=== PATIENT | female | born 1985 | race Caucasian/White ===

== ENCOUNTER 2018-09-22 16:30 | Emergency (ER) | payer SELFPAY ==
[~2018-09-22] VITALS: Ht 170.2 cm; Wt 83.9 kg
[2018-09-22] MEDS ORDERED: hydrOXYzine HCL 25 MG TABLET PO STA (17:13)
[2018-09-22] MEDS ORDERED: hydrOXYzine HCL 25 MG TABLET ONE (17:16)
[2018-09-22 17:42] LABS: BARBITURATES NEG (NEG); BENZODIAZEPINES NEG (NEG); BILIRUBIN,URINE NEG (NEG); CANNABINOIDS NEG (NEG); CLARITY,URINE CLOUDY; COCAINE NEG (NEG); COLOR,URINE YELLOW; GLUCOSE,URINE NEG (NEG); METHADONE NEG (NEG); NITRITE,URINE POS (NEG); OPIATES NEG (NEG); PHENCYCLIDINE NEG (NEG); UROBILINOGEN,URINE 0.2 mg/dL (0.2 mg/dL)
[2018-09-22 17:43] LABS: BACTERIA,URINE MOD /HPF (0-FEW); RBC,URINE OCC /HPF (0-2); SQUAMOUS EPITHELIAL CELL,UR OCC /LPF; U PREG PATIENT NEGATIVE (NEG); WBC,URINE 0 /HPF (0-4)
[2018-09-22 17:45] LABS: AMPHETAMINE/METHAMPHETAMINE NEG (NEG)
[2018-09-22] MEDS ORDERED: NITR100C62 PO (17:52)
[2018-09-22] MEDS ORDERED: HYDR25TA PO (17:52)
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
[2018-09-22] MEDS ORDERED: NITROFURANTOIN MONOHYD/M-CRYST 100 MG CAPSULE. PO ONE (18:00)
[2018-09-22 18:12] VITALS: BP 121/78
== END 2018-09-22 18:14 | disposition home or self-care (01) ==
LOC: ER 16:30
DX: F41.9 Anxiety disorder, unspecified (principal); N39.0 Urinary tract infection, site not specified; R31.9 Hematuria, unspecified; F17.200 Nicotine dependence, unspecified, uncomplicated; Z88.2 Allergy status to sulfonamides
CPT/HCPCS: 36415; 80307; 81001; 81025; 87086; 87186; 99284

== ENCOUNTER 2018-12-05 02:43 | Emergency (ER) | payer SELFPAY ==
[~2018-12-05] VITALS: Ht 170.2 cm; Wt 81.6 kg
[~2018-12-05 02:43] MED LIST: HYDR25TA PO; NITR100C62 PO
--- NOTE | 2018-12-05 02:47 | ED.ADGEN ---
Past History Past Medical History: Anxiety Past Surgical History: No Surgical History Alcohol Use: None Drug Use: None Adult General Chief Complaint Chief Complaint ". .. I ve been nauseated for a week... and I did a home test... and it was positive... and I am having some lower abd. pain... " [facility] HPI Patient is a 33 year old female who presents with above hx and complaints lower abdomen pain and a positive home test. Patient has had 4 pregnancies, vaginal deliveries and one induced by oral medications. Patient has had lower abdomen pain for the past week. No history of STDs. 4 lifetime sexual partners. Last period was at the end of October. No history of bad food. No history of travel. No history of specific ill contacts. No history of trauma. Patient had a stool 2 days ago. Recently moved from [place] to [facility]. Patient does have a history of allergy to sulfa and previous UTIs. Patient also has a history of anxiety disorder which the patient last seen here on September 22 of this year. Review of Systems Review of Systems Constitutional: Denies fever or chills [] Eyes: Denies change in visual acuity, redness, or eye pain [] HENT: Denies nasal congestion or sore throat [] Respiratory: Denies cough or shortness of breath [] Cardiovascular: No additional information not addressed in HPI [] GI: Complaints of lower abdominal pain, nausea. Denies, vomiting, bloody stools or diarrhea [] : Denies dysuria or hematuria [] Musculoskeletal: Denies back pain or joint pain [] Integument: Denies rash or skin lesions [] Neurologic: Denies headache, focal weakness or sensory changes [] Endocrine: Denies polyuria or polydipsia [] All other systems were reviewed and found to be within normal limits, except as documented in this note. Family History Family History Noncontributory Current Medications Current Medications Current Medications Medications (Trade) Dose Ordered Sig/Pipe Start Time Stop Time Status Last Admin Dose Admin Famotidine (Pepcid Vial) 20 mg 1X ONCE 12/05/18 04:00 12/05/18 04:01 DC 12/05/18 04:00 20 MG Lactated Ringer's 1,000 ml @ 1,000 mls/hr Q1H 12/05/18 04:00 12/05/18 04:59 DC 12/05/18 03:47 1,000 MLS/HR Ondansetron HCl (Zofran) 8 mg 1X ONCE 12/05/18 04:00 12/05/18 04:01 DC 12/05/18 04:30 8 MG Oxycodone/ Acetaminophen (Percocet 5/325) 2 tab 1X ONCE 12/05/18 04:00 12/05/18 04:01 DC 12/05/18 04:30 2 TAB See nursing for home meds Allergies Allergies Allergies Coded Allergies Type Severity Reaction Last Updated Verified Sulfa (Sulfonamide Antibiotics) Allergy Intermediate HIVES 09/22/18 Yes Physical Exam Physical Exam Constitutional: Well developed, well nourished, [id number] acute distress, non-toxic appearance. [] HENT: Normocephalic, atraumatic, bilateral external ears normal, oropharynx moist, no oral exudates, nose normal. Poor dentition Eyes: PERRLA, EOMI, conjunctiva normal, no discharge. [] Neck: Normal range of motion, no tenderness, supple, no stridor. [] Cardiovascular:Heart rate regular rhythm, no murmur [] Lungs & Thorax: Bilateral breath sounds equal at apexes on auscultation [] Abdomen: Bowel sounds normal, soft, lower pelvic tenderness, no masses, no pulsatile masses. [] Vaginal shows closed os. No obvious discharge. No cervical motion tenderness. Rectal hard stool in vault. No obvious palpable adnexal masses. Skin: Warm, dry, no erythema, no rash. [] Back: No tenderness, no CVA tenderness. [] Extremities: No tenderness, no cyanosis, no clubbing, ROM intact, no edema. No psoas sign. Neurologic: Alert and oriented X 3, normal motor function, normal sensory func tion, no focal deficits noted. [] Psychologic: Affect anxious, judgement normal, mood normal. [] Current Patient Data Vital Signs Vital Signs Date Time Temp Pulse Resp B/P (MAP) Pulse Ox O2 Delivery O2 Flow Rate FiO2 12/05/18 06:15 70 18 120/77 (91) 99 Room Air 12/05/18 02:55 98.6 Lab Results Laboratory Tests Test 12/05/18 02:56 12/05/18 03:30 12/05/18 04:00 Urine Collection Type Unknown Urine Color Yellow Urine Clarity Clear Urine pH 7.0 Urine Specific [place] 1.015 Urine Protein Neg (NEG-TRACE) Urine Glucose (UA) Neg mg/dL (NEG) Urine Ketones (Stick) Neg mg/dL (NEG) Urine Blood Trace (NEG) Urine Nitrite Neg (NEG) Urine Bilirubin Neg (NEG) Urine Urobilinogen Dipstick 0.2 mg/dL (0.2 mg/dL) Urine Leukocyte Esterase Trace (NEG) Urine RBC 3-5 /HPF (0-2) Urine WBC Occ /HPF (0-4) Urine Squamous Epithelial Cells Few /LPF Urine Bacteria 0 /HPF (0-FEW) Urine Test Positive (NEG) Urine Opiates Screen Neg (NEG) Urine Methadone Screen Neg (NEG) Urine Barbiturates Neg (NEG) Urine Phencyclidine Screen Neg (NEG) Urine Amphetamine/Methamphetamine Neg (NEG) Urine Benzodiazepines Screen Neg (NEG) Urine Cocaine Screen Neg (NEG) Urine Cannabinoids Screen Neg (NEG) Urine Ethyl Alcohol Neg (NEG) White Blood Count 8.4 x10^3/uL (4.0-11.0) Red Blood Count 4.44 x10^6/uL (3.50-5.40) Hemoglobin 12.9 g/dL (12.0-15.5) Hematocrit 39.5 % (36.0-47.0) Mean Corpuscular Volume 89 fL (79-100) Mean Corpuscular Hemoglobin 29 pg (25-35) Mean Corpuscular Hemoglobin Concent 33 g/dL (31-37) Red Cell Distribution Width 15.3 % (11.5-14.5) H Platelet Count 225 x10^3/uL (140-400) Neutrophils (%) (Auto) 49 % (31-73) Lymphocytes (%) (Auto) 40 % (24-48) Monocytes (%) (Auto) 8 % (0-9) Eosinophils (%) (Auto) 3 % (0-3) Basophils (%) (Auto) 1 % (0-3) Neutrophils # (Auto) 4.1 x10^3uL (1.8-7.7) Lymphocytes # (Auto) 3.3 x10^3/uL (1.0-4.8) Monocytes # (Auto) 0.6 x10^3/uL (0.0-1.1) Eosinophils # (Auto) 0.3 x10^3/uL (0.0-0.7) Basophils # (Auto) 0.1 x10^3/uL (0.0-0.2) Prothrombin Time 10.5 SEC (9.4-11.4) Prothrombin Time INR 1.0 (0.9-1.1) Activated Partial Thromboplast Time 23 SEC (23-33) Maternal Serum HCG Beta Subunit 71432 mIU/mL (0-6) H Sodium Level 140 mmol/L (136-145) Potassium Level 3.4 mmol/L (3.5-5.1) L Chloride Level 104 mmol/L (98-107) Carbon Dioxide Level 29 mmol/L (21-32) Anion Gap 7 (6-14) Blood Urea Nitrogen 11 mg/dL (7-20) Creatinine 0.9 mg/dL (0.6-1.0) Estimated GFR (Cockcroft-Gault) 71.7 Glucose Level 89 mg/dL (70-99) Calcium Level 8.8 mg/dL (8.5-10.1) Total Bilirubin 0.1 mg/dL (0.2-1.0) L Direct Bilirubin 0.1 mg/dL (0.0-0.2) Aspartate Amino Transferase (AST) 10 U/L (15-37) L Alanine Aminotransferase (ALT) 19 U/L (14-59) Alkaline Phosphatase 53 U/L (46-116) Total Protein 6.9 g/dL (6.4-8.2) Albumin 3.3 g/dL (3.4-5.0) L Amylase Level 65 U/L (25-115) Lipase 216 U/L (73-393) Thyroid Stimulating Hormone (TSH) 3.404 uIU/mL (0.358-3.740) Treponema pallidum Antibody Nonreactive (Nonreactive) Hepatitis A IgM Antibody Nonreactive (Nonreactive) Hepatitis B Surface Antigen Nonreactive (Nonreactive) Hepatitis B Core IgM Antibody Nonreactive (Nonreactive) Hepatitis C IgG Antibody Nonreactive (Nonreactive) HIV (1&2) Antibody Screen Nonreactive (Nonreactive) Chlamydia DNA Probe Negative (Negative) Neisseria gonorrhoeae DNA Probe Negative (Negative) Microbiology 12/05/18 Wet Prep - Final, Complete 12/05/18 Urine Culture - Final, Complete 12/05/18 Urine Culture Result 1 (CATY) - Final, Complete Laboratory Tests Test 12/05/18 02:56 12/05/18 03:30 Urine Collection Type Unknown Urine Color Yellow Urine Clarity Clear Urine pH 7.0 Urine Specific [place] 1.015 Urine Protein Neg (NEG-TRACE) Urine Glucose (UA) Neg mg/dL (NEG) Urine Ketones (Stick) Neg mg/dL (NEG) Urine Blood Trace (NEG) Urine Nitrite Neg (NEG) Urine Bilirubin Neg (NEG) Urine Urobilinogen Dipstick 0.2 mg/dL (0.2 mg/dL) Urine Leukocyte Esterase Trace (NEG) Urine RBC 3-5 /HPF (0-2) Urine WBC Occ /HPF (0-4) Urine Squamous Epithelial Cells Few /LPF Urine Bacteria 0 /HPF (0-FEW) Urine Test Positive (NEG) Urine Opiates Screen Neg (NEG) Urine Methadone Screen Neg (NEG) Urine Barbiturates Neg (NEG) Urine Phencyclidine Screen Neg (NEG) Urine Amphetamine/Methamphetamine Neg (NEG) Urine Benzodiazepines Screen Neg (NEG) Urine Cocaine Screen Neg (NEG) Urine Cannabinoids Screen Neg (NEG) Urine Ethyl Alcohol Neg (NEG) White Blood Count 8.4 x10^3/uL (4.0-11.0) Red Blood Count 4.44 x10^6/uL (3.50-5.40) Hemoglobin 12.9 g/dL (12.0-15.5) Hematocrit 39.5 % (36.0-47.0) Mean Corpuscular Volume 89 fL (79-100) Mean Corpuscular Hemoglobin 29 pg (25-35) Mean Corpuscular Hemoglobin Concent 33 g/dL (31-37) Red Cell Distribution Width 15.3 % (11.5-14.5) H Platelet Count 225 x10^3/uL (140-400) Neutrophils (%) (Auto) 49 % (31-73) Lymphocytes (%) (Auto) 40 % (24-48) Monocytes (%) (Auto) 8 % (0-9) Eosinophils (%) (Auto) 3 % (0-3) Basophils (%) (Auto) 1 % (0-3) Neutrophils # (Auto) 4.1 x10^3uL (1.8-7.7) Lymphocytes # (Auto) 3.3 x10^3/uL (1.0-4.8) Monocytes # (Auto) 0.6 x10^3/uL (0.0-1.1) Eosinophils # (Auto) 0.3 x10^3/uL (0.0-0.7) Basophils # (Auto) 0.1 x10^3/uL (0.0-0.2) Prothrombin Time 10.5 SEC (9.4-11.4) Prothrombin Time INR 1.0 (0.9-1.1) PTT 23 SEC (23-33) Sodium Level 140 mmol/L (136-145) Potassium Level 3.4 mmol/L (3.5-5.1) L Chloride Level 104 mmol/L (98-107) Carbon Dioxide Level 29 mmol/L (21-32) Anion Gap 7 (6-14) Blood Urea Nitrogen 11 mg/dL (7-20) Creatinine 0.9 mg/dL (0.6-1.0) Estimated GFR (Cockcroft-Gault) 71.7 Glucose Level 89 mg/dL (70-99) Calcium Level 8.8 mg/dL (8.5-10.1) Total Bilirubin 0.1 mg/dL (0.2-1.0) L Direct Bilirubin 0.1 mg/dL (0.0-0.2) Aspartate Amino Transferase (AST) 10 U/L (15-37) L Alanine Aminotransferase (ALT) 19 U/L (14-59) Alkaline Phosphatase 53 U/L (46-116) Total Protein 6.9 g/dL (6.4-8.2) Albumin 3.3 g/dL (3.4-5.0) L Amylase Level 65 U/L (25-115) Lipase 216 U/L (73-393) Microbiology 12/05/18 Wet Prep - Final, Complete EKG EKG [] Radiology/Procedures Radiology/Procedures [][address] [address] IMAGING REPORT Signed PATIENT: HAILEE MONTAGUEUNT: [id number] : 1985 LOCATION: ER AGE: 33 SEX: F EXAM STATUS: DEP ER ORD. PHYSICIAN: TANK LONGORIA MD REASON: preg. and pelvic pain PROCEDURE: PREG 1ST TRIMESTER INDICATION: Pelvic pain COMPARISON: None. TECHNIQUE: Grayscale and color ultrasound images uterus and adnexa. Transabdominal and transvaginal images obtained. FINDINGS: Uterus: 96 x 51 mm. Gestational sac is identified measuring up to 11 mm. No definite pole at this time. Yolk sac is seen. Right Ovary: 27 x 15 x 14 mm. Left Ovary: 32 x 23 x 22 mm. Vascular flow identified to bilateral ovaries. IMPRESSION: 1. Intrauterine gestational sac is identified with the mean sac diameter correlating with a 5 week and 6 day gestation. A yolk sac is seen but no pole at this time. Would consider obtaining a follow-up to ensure appropriate development of a pole. 2. Vascular flow seen to the bilateral maternal ovaries. Electronically signed by: Indigo Mora MD (12/05/2018 6:23 AM) [facility] DICTATED AND SIGNED BY: INDIGO MORA MD DATE: 12/05/18 0623 CC: TANK LONGORIA MD; PCP,NO ~ Course & Med Decision Making Course & Med Decision Making Pertinent Labs and Imaging studies reviewed. 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 Take daily vitamin. Take only Tylenol for pain. Pt to follow up pending cultures. [] Final Impression Final Impression 1. Abdomen Pain[] 2 . - Appear s appears intrauterine-however cannot confirm a heart rate 3. Hx. Gravid 4, 3 vaginal deliveries and one induced 4. Blood Type = A+ 5. B-HCG 10,241 Dragon Disclaimer Dragon Disclaimer This electronic medical record was generated, in whole or in part, using a voice recognition dictation system. Dragon Disclaimer This chart was dictated in whole or in part using Voice Recognition software in a busy, high-work load, and often noisy Emergency Department environment. It may contain unintended and wholly unrecognized errors or omissions. TANK LONGORIA MD Dec 05, 2018 02:47
[2018-12-05 03:28] LABS: BACTERIA,URINE 0 /HPF (0-FEW); BILIRUBIN,URINE NEG (NEG); CLARITY,URINE CLEAR; COLOR,URINE YELLOW; GLUCOSE,URINE NEG (NEG); NITRITE,URINE NEG (NEG); SQUAMOUS EPITHELIAL CELL,UR FEW /LPF; UROBILINOGEN,URINE 0.2 mg/dL (0.2 mg/dL); WBC,URINE OCC /HPF (0-4)
[2018-12-05 03:29] LABS: U PREG PATIENT POSITIVE (NEG)
[2018-12-05 03:34] LABS: BARBITURATES NEG (NEG); BENZODIAZEPINES NEG (NEG); CANNABINOIDS NEG (NEG); COCAINE NEG (NEG); METHADONE NEG (NEG); OPIATES NEG (NEG); PHENCYCLIDINE NEG (NEG)
[2018-12-05 03:39] LABS: AMPHETAMINE/METHAMPHETAMINE NEG (NEG)
[2018-12-05] MEDS ORDERED: ONDANSETRON PF 4 MG/2 ML VIAL. IV ONE (04:00)
[2018-12-05] MEDS ORDERED: oxyCODONE/APAP 5/325 1 TAB TABLET PO ONE (04:00)
[2018-12-05] MEDS ORDERED: FAMOTIDINE 20 MG/2 ML VIAL IVP ONE (04:00)
[2018-12-05] MEDS ORDERED: IV RINGERS SOLUTION,LACTATED 1,000 ML IV SCH (04:00)
[2018-12-05 04:03] LABS: BASO # 0.1 x10^3/uL (0.0-0.2); BASO % 1 % (0-3); EOS # 0.3 x10^3/uL (0.0-0.7); EOS % 3 % (0-3); HEMATOCRIT 39.5 % (36.0-47.0); HEMOGLOBIN 12.9 g/dL (12.0-15.5); LYMPH # 3.3 x10^3/uL (1.0-4.8); LYMPH % 40 % (24-48); MEAN CORPUSCULAR HEMOGLOBIN 29 pg (25-35); MEAN CORPUSCULAR HGB CONC 33 g/dL (31-37); MEAN CORPUSCULAR VOLUME 89 fL (79-100); MONO # 0.6 x10^3/uL (0.0-1.1); MONO % 8 % (0-9); NEUT # 4.1 x10^3uL (1.8-7.7); NEUT % 49 % (31-73); PLATELET COUNT 225 x10^3/uL (140-400); RED BLOOD COUNT 4.44 x10^6/uL (3.50-5.40); RED CELL DISTRIBUTION WIDTH 15.3 % (11.5-14.5); WHITE BLOOD COUNT 8.4 x10^3/uL (4.0-11.0)
[2018-12-05 04:16] LABS: ALBUMIN 3.3 g/dL (3.4-5.0); CALCIUM 8.8 mg/dL (8.5-10.1); CREATININE 0.9 mg/dL (0.6-1.0); DIRECT BILIRUBIN 0.1 mg/dL (0.0-0.2); GFR 71.7; POTASSIUM 3.4 mmol/L (3.5-5.1); TOTAL BILIRUBIN 0.1 mg/dL (0.2-1.0); TOTAL PROTEIN 6.9 g/dL (6.4-8.2)
[2018-12-05 06:15] VITALS: BP 120/77
--- NOTE | 2018-12-05 06:26 | RAD ---
INDICATION: Pelvic pain COMPARISON: None. TECHNIQUE: Grayscale and color ultrasound images uterus and adnexa. Transabdominal and transvaginal images obtained. FINDINGS: Uterus: 96 x 51 mm. Gestational sac is identified measuring up to 11 mm. No definite pole at this time. Yolk sac is seen. Right Ovary: 27 x 15 x 14 mm. Left Ovary: 32 x 23 x 22 mm. Vascular flow identified to bilateral ovaries. IMPRESSION: 1. Intrauterine gestational sac is identified with the mean sac diameter correlating with a 5 week and 6 day gestation. A yolk sac is seen but no pole at this time. Would consider obtaining a follow-up to ensure appropriate development of a pole. 2. Vascular flow seen to the bilateral maternal ovaries. Electronically signed by: Christian Mora MD (12/05/2018 6:23 AM) [facility]
[2018-12-06 17:15] LABS: CHLAMYDIA PROBE Negative (Negative)
== END 2018-12-05 06:20 | disposition home or self-care (01) ==
LOC: ER 02:43
DX: O26.891 Other specified pregnancy related conditions, first trimester (principal); R10.2 Pelvic and perineal pain; O99.341 Other mental disorders complicating pregnancy, first trimester; F41.9 Anxiety disorder, unspecified; O23.41 Unspecified infection of urinary tract in pregnancy, first trimester; Z3A.01 Less than 8 weeks gestation of pregnancy; Z88.2 Allergy status to sulfonamides
CPT/HCPCS: 36415; 76801; 80048; 80076; 80307; 81001; 81025; 82150; 83690; 84443; 84702; 85025; 85610; 85730; 86592; 86703; 86705; 86709; 86803; 86900; 86901; 87086; 87340; 87491; 87591; 96374; 96375; 99285; J2405; J3490; J7120; Q0111

== ENCOUNTER 2018-12-19 17:58 | Emergency (ER) | payer SELFPAY ==
[~2018-12-19] VITALS: Ht 170.2 cm; Wt 78.9 kg
[2018-12-19 18:06] VITALS: BP 137/90
[2018-12-19] MEDS ORDERED: ACETAMINOPHEN 500 MG TABLET PO ONE (18:30)
[2018-12-19] MEDS ORDERED: ONDANSETRON PF 4 MG/2 ML VIAL. IV ONE (18:30)
[2018-12-19] MEDS ORDERED: IV NORMAL SALINE 1,000ML 1,000 ML IV ONE (18:30)
[2018-12-19] MEDS ORDERED: FAMOTIDINE 20 MG/2 ML VIAL IVP ONE (18:30)
[2018-12-19] MEDS ORDERED: POLY119P4 PO (18:34)
[2018-12-19] MEDS ORDERED: SENN-121 PO (18:34)
--- NOTE | 2018-12-19 18:34 | PHYS DOC ---
Past History Past Medical History: Anxiety Past Surgical History: Cholecystectomy Smoking: Cigarettes Alcohol Use: None Drug Use: None Adult General Chief Complaint Chief Complaint: ABDOMINAL PAIN HPI HPI 33-year-old female Ab1 presents with report of lower abdominal pain with radiation to left flank which is been intermittent over the last 2 days. Patient reports worse today. Patient reports she is at approximately 8 weeks. Patient was previously seen here with pelvic exam performed without signs of STD infections her brief Meditech review. Patient also reports she has been constipated for the last 6 days. Reports some associated nausea and vomiting. Review of Systems Review of Systems Constitutional: Denies fever or chills Eyes: Denies redness or eye pain HENT: Denies nasal congestion or sore throat Respiratory: Denies cough or shortness of breath Cardiovascular: Denies chest pain or palpitations GI: Reports abdominal pain, nausea, and vomiting /OLIVE P[employer]ER: Denies dysuria or hematuria; reports with some scant discharge Musculoskeletal: Reports flank pain or joint pain Integument: Denies rash or skin lesions Neurologic: Denies headache, focal weakness or sensory changes Complete systems were reviewed and found to be within normal limits, except as documented in this note. Current Medications Current Medications Current Medications Medications (Trade) Dose Ordered Sig/Pipe Start Time Stop Time Status Last Admin Dose Admin Acetaminophen (Tylenol) 500 mg 1X ONCE 12/19/18 18:30 12/19/18 18:31 DC Famotidine (Pepcid Vial) 20 mg 1X ONCE 12/19/18 18:30 12/19/18 18:31 DC Ondansetron HCl (Zofran) 4 mg 1X ONCE 12/19/18 18:30 12/19/18 18:31 DC Sodium Chloride 1,000 ml @ 1,000 mls/hr 1X ONCE 12/19/18 18:30 12/19/18 19:29 Allergies Allergies Allergies Coded Allergies Type Severity Reaction Last Updated Verified Sulfa (Sulfonamide Antibiotics) Allergy Intermediate HIVES 12/19/18 Yes Physical Exam Physical Exam Constitutional: Well developed, well nourished, no acute distress, non-toxic appearance HENT: Normocephalic, atraumatic, oropharynx moist Eyes: Conjunctiva normal, no discharge Neck: Normal range of motion, no tenderness, supple Cardiovascular: Heart rate normal, regular rhythm Lungs & Thorax: Bilateral breath sounds clear to auscultation, no wheezing Abdomen: Soft, LLQ tenderness, no rebound tenderness/guarding, mild distention noted Pelvic: Deferred per patient Skin: Warm, dry, no erythema, no rash Back: No tenderness, no CVA tenderness Extremities: No tenderness, ROM intact, no edema Neurologic: Alert and oriented X 3, normal motor function, normal sensory function, no focal deficits noted Psychologic: Affect normal, judgement normal Current Patient Data Vital Signs Vital Signs Date Time Temp Pulse Resp B/P (MAP) Pulse Ox O2 Delivery O2 Flow Rate FiO2 12/19/18 18:06 98.8 100 18 95 Room Air EKG EKG [] Radiology/Procedures Radiology/Procedures [] Course & Med Decision Making Course & Med Decision Making Pertinent Labs and Imaging studies reviewed. (See chart for details) Patient presents at approximately 8 weeks with report of left lower quadrant abdominal pain with radiation to her back. Patient also complaining of some scant reddish discharge. Patient also complains of constipation �6 days with associated nausea and vomiting. Symptomatic treatment provided. IV fluid hydration given. Labs obtained and posted to chart. OB ultrasound consistent for intrauterine with good heart tone. Patient offered pelvic exam which she declined. Patient does have recent pelvic exam with testing noted to be normal per brief Meditech review. Patient stable for discharge with outpatient follow-up with PCP/OB. Discussed findings and plan with patient and family, who acknowledge understanding and agreement. Dragon Disclaimer Dragon Disclaimer This electronic medical record was generated, in whole or in part, using a voice recognition dictation system. Departure Departure: Impression: Primary Impression: Constipation Additional Impressions: Abdominal pain during Vaginal discharge during Disposition: 01 HOME, SELF-CARE Condition: STABLE Referrals: PCP,NO (PCP) Patient Instructions: Abdominal Pain During , [id number], Constipation, Adult, [id number] Scripts Polyethylene Glycol 3350 (MIRALAX) 119 Gm Powder 17 GM PO DAILY PRN for CONSTIPATION, #255 GM Prov: DUONG NAVA DO 12/19/18 Sennosides/Docusate Sodium (Colace 2-in-1 Tablet) 1 Each Tablet 1 EACH PO QHS PRN for CONSTIPATION, #20 TAB Prov: DUONG NAVA DO 12/19/18 Problem Qualifiers Primary Impression: Constipation Constipation type: unspecified constipation type Qualified Codes: K59.00 - Constipation, unspecified Additional Impressions: Abdominal pain during Trimester: first trimester Qualified Codes: O26.891 - Other specified related conditions, first trimester; R10.9 - Unspecified abdominal pain Vaginal discharge during Trimester: first trimester Qualified Codes: O26.891 - Other specified related conditions, first trimester; N89.8 - Other specified noninflammatory disorders of vagina DUONG NAVA DO Dec 19, 2018 18:34
[2018-12-19 19:59] LABS: BILIRUBIN,URINE NEG (NEG); CLARITY,URINE CLOUDY; COLOR,URINE AMBER; GLUCOSE,URINE NEG (NEG)
[2018-12-19 20:00] LABS: ALBUMIN 3.9 g/dL (3.4-5.0); ALBUMIN/GLOBULIN RATIO 0.8 (1.0-1.7); BACTERIA,URINE MOD /HPF (0-FEW); CALCIUM 9.6 mg/dL (8.5-10.1); CREATININE 1.1 mg/dL (0.6-1.0); GFR 56.9; MAGNESIUM 2.3 mg/dL (1.8-2.4); NITRITE,URINE POS (NEG); POTASSIUM 4.1 mmol/L (3.5-5.1); RBC,URINE OCC /HPF (0-2); SQUAMOUS EPITHELIAL CELL,UR MOD /LPF; TOTAL BILIRUBIN 0.2 mg/dL (0.2-1.0); TOTAL PROTEIN 8.7 g/dL (6.4-8.2); UROBILINOGEN,URINE 1 mg/dL (0.2 mg/dL)
[2018-12-19 20:36] LABS: BASO % 0 % (0-3); EOS % 0 % (0-3); HEMATOCRIT 42.3 % (36.0-47.0); HEMOGLOBIN 13.8 g/dL (12.0-15.5); LYMPH # 1.5 x10^3/uL (1.0-4.8); LYMPH % 12 % (24-48); MEAN CORPUSCULAR HEMOGLOBIN 29 pg (25-35); MEAN CORPUSCULAR HGB CONC 33 g/dL (31-37); MEAN CORPUSCULAR VOLUME 89 fL (79-100); MONO # 0.7 x10^3/uL (0.0-1.1); MONO % 6 % (0-9); NEUT # 9.9 x10^3uL (1.8-7.7); NEUT % 82 % (31-73); PLATELET COUNT 258 x10^3/uL (140-400); RED BLOOD COUNT 4.74 x10^6/uL (3.50-5.40); RED CELL DISTRIBUTION WIDTH 14.9 % (11.5-14.5); WHITE BLOOD COUNT 12.1 x10^3/uL (4.0-11.0)
--- NOTE | 2018-12-19 20:39 | RAD ---
Transvaginal OB ultrasound less than 14 weeks 12/19/2018 CLINICAL HISTORY: First trimester with pelvic pain. TECHNIQUE: A transvaginal pelvic ultrasound study was performed. Multiple images were obtained. FINDINGS: A gestational sac is seen within the endometrial canal within the fundus of the uterus. Within this gestational sac an embryonic pole with an associated yolk sac are seen. The CRL of the embryonic pole measures 1.2 cm. This corresponds to a gestational age by ultrasound of 7 weeks 3 days plus or minus a standard deviation of 5 days. Embryonic cardiac activity is seen. The heart rate is 152 beats per minutes. The uterus is otherwise within normal limits. The left ovary is well-visualized and is within normal limits in size and echogenicity. It measures 3.4 x 2.8 x 2.6 cm in size. The right ovary is not visualized. No adnexal mass is seen. No free fluid is noted. IMPRESSION: Single living IUP with an estimated gestational age by ultrasound of 7 weeks 3 days plus or minus a standard deviation of 5 days. The estimated date of delivery by ultrasound is 08/04/2019. Electronically signed by: Simone Joe MD (12/19/2018 8:36 PM) [id number]
== END 2018-12-19 21:26 | disposition home or self-care (01) ==
LOC: ER 17:58
DX: O46.91 Antepartum hemorrhage, unspecified, first trimester (principal); K59.00 Constipation, unspecified; O21.9 Vomiting of pregnancy, unspecified; O99.331 Smoking (tobacco) complicating pregnancy, first trimester; Z3A.01 Less than 8 weeks gestation of pregnancy; Z88.2 Allergy status to sulfonamides
CPT/HCPCS: 36415; 76817; 80053; 81001; 83690; 83735; 84702; 85025; 86900; 86901; 87086; 96361; 96374; 96375; 99285; J2405; J3490; J7030